=== PATIENT | male | born 1945 | race Caucasian/White ===

== ENCOUNTER → 2016-09-30 | Outpatient (CLI) | payer MEDICARE | END | disposition home or self-care (01) | LOC: PCVCIMAG 10:52 | PROVIDERS: ATTEND Internal Medicine Cardiovascular Disease | DX: E78.00 Pure hypercholesterolemia, unspecified (principal); R94.31 Abnormal electrocardiogram [ECG] [EKG] | CPT/HCPCS: 93325; 93351 ==

== ENCOUNTER → 2017-04-20 | Outpatient (CLI) | payer MEDICARE ==
--- NOTE | 2017-04-20 15:43 | PCVCIMAG ---
APPROVED REPORT Study performed: 04/20/2017 13:43:41 EXAM: Comprehensive 2D, Doppler, and color-flow Echocardiogram Patient Location: Echo lab Status: routine BSA: 2.29 HR: 85 bpmBP: 160/80 mmHg Rhythm: NSR w/ pvcs Other Information Study Quality: Adequate Indications Diabetes Dyspnea CAD mitral regurgitation 2D Dimensions LVEF(%): 57.98 (>50%) IVSd: 11.84 (7-11mm)LVOT Diam: 22.44 (18-24mm) LVDd: 40.45 mm PWd: 11.97 (7-11mm)Ascending Ao: 35.04 (22-36mm) LVDs: 28.25 (25-40mm) Left Atrium: 40.01 (27-40mm) Aortic Root: 36.86 mm LV Single Plane 4CH: 57.28 % LV Single Plane 2CH: 54.42 %Peterson's LVEF: 55.85 % Biplane EF: 55.9 % Volumes Left Atrial Volume (Systole) Single Plane 4CH: 86.95 mLSingle Plane 2CH: 73.01 mL LA ESV Index: 36.00 mL/m2 Aortic Valve AoV Peak Dinh.: 2.41 m/s AO Peak Gr.: 23.25 mmHgLVOT Max P.29 mmHg AO Mean Gr.: 12.49 mmHgLVOT Mean P.93 mmHg AO V2 Mean: 1.70 m/sLVOT Max V: 1.15 m/s AO V2 VTI: 50.64 cmLVOT Mean V: 0.77 m/s SABINE (VTI): 1.92 [id number] V1 VTI: 24.64 cm SABINE Vmax: 1.89 cm2 AI Vmax: 4.80 m/sSV (LVOT): 97.36 mL AI [place]: 3.55 m/s2 AI PHT: 391.75 ms Mitral Valve E/A Ratio: 0.9 MV Decel. Time: 277.06 ms MV E Max Dinh.: 0.82 m/s MV A Dinh.: 0.93 m/s IVRT: 121.11 ms Pulmonary Valve PV Peak Dinh.: 1.23 m/sPV Peak Gr.: 6.04 mmHg Pulmonary Vein P Vein S: 0.36 m/sP Vein A: 0.37 m/s P Vein D: 0.48 m/sP Vein A Dur.: 141.9 msec P Vein S/D Ratio: 0.75 Tricuspid Valve TR Peak Dinh.: 2.60 m/s TR Peak Gr.: 26.95 mmHg Left Ventricle The left ventricle is normal size. There is normal LV segmental wall motion. Mild concentric left ventricular hypertrophy. Left ventricular systolic function is normal. The left ventricular ejection fraction is within the normal range. LVEF is 55-60%. Grade I - abnormal relaxation pattern. Right Ventricle The right ventricle is normal size. The right ventricular systolic function is normal. Atria The left atrium size is normal. The right atrium size is normal. Aortic Valve Mild aortic valve sclerosis. Mild aortic regurgitation. There is no significant aortic valve stenosis. Calculated aortic valve area is 1.9 cm2 with maximum pressure gradient of 23 mmHg and mean pressure gradient of 12 mmHg. Mitral Valve The mitral valve is normal in structure. Mild mitral regurgitation. No evidence of mitral valve stenosis. Tricuspid Valve The tricuspid valve is normal in structure. Mild tricuspid regurgitation with PAP of 37 mmHg. Pulmonic Valve The pulmonary valve is normal in structure. There is no pulmonic valvular regurgitation. Great Vessels The aortic root is normal in size. IVC is normal in size and collapses with >50% inspiration Pericardium There is no pericardial effusion. <Conclusion> The left ventricle is normal size. Mild concentric left ventricular hypertrophy. LVEF is 55-60%. Grade I - abnormal relaxation pattern. The right ventricle is normal size. The left atrium size is normal. Mild aortic valve sclerosis. There is no significant aortic valve stenosis. Calculated aortic valve area is 1.9 cm2 with maximum pressure gradient of 23 mmHg and mean pressure gradient of 12 mmHg. Mild mitral regurgitation. Mild tricuspid regurgitation with PAP of 37 mmHg. There is no pericardial effusion.
== END | disposition home or self-care (01) ==
LOC: PCVCIMAG 14:28
PROVIDERS: ATTEND Internal Medicine Cardiovascular Disease
DX: I08.3 Combined rheumatic disorders of mitral, aortic and tricuspid valves (principal); R93.1 Abnormal findings on diagnostic imaging of heart and coronary circulation; I25.10 Atherosclerotic heart disease of native coronary artery without angina pectoris; E78.00 Pure hypercholesterolemia, unspecified; R94.31 Abnormal electrocardiogram [ECG] [EKG]; E11.9 Type 2 diabetes mellitus without complications; I45.10 Unspecified right bundle-branch block; Z79.899 Other long term (current) drug therapy
CPT/HCPCS: 80061; 93005; 93306; G0463

== ENCOUNTER → 2018-04-26 | Outpatient (CLI) | payer MEDICARE ==
--- NOTE | 2018-04-26 13:19 | PCVCIMAG ---
APPROVED REPORT Laterality: Bilateral Indications Bruit Doppler Spectral Velocity Analysis PSV / EDVPSV / EDV ECA (R) 81 / 11 cm/sECA (L) 52 / 11 cm/s dICA (R) 69 / 27 cm/sdICA (L) 49 / 19 cm/s Misty (R) 40 / 14 cm/smICA (L) 63 / 22 cm/s pICA (R) 48 / 13 cm/spICA (L) 55 / 21 cm/s Bulb (R) 42 / 12 cm/sBulb (L) 66 / 22 cm/s dCCA (R) 59 / 16 cm/sdCCA (L) 71 / 22 cm/s mCCA (R) 95 / 24 cm/smCCA (L) 104 / 29 cm/s Vert (R) 60 / 13 cm/sVert (L) 68 / 21 cm/s ICA/CCA 1.17ICA/CCA 0.89 Findings The right carotid bulb has minimal plaque. The right proximal internal carotid artery shows no significant stenosis. The right common carotid artery shows no significant stenosis. The right external carotid artery shows no significant stenosis. The left carotid bulb has moderate plaque. The left proximal internal carotid artery shows <40% stenosis. The left common carotid artery shows no significant stenosis. The left external carotid artery shows no significant stenosis. Conclusion 1. Right internal carotid artery plaquing without significant stenosis 2. Left internal carotid artery stenosis (<40%) 3. Antegrade vertebral flow
== END | disposition home or self-care (01) ==
LOC: PCVCIMAG 13:00
PROVIDERS: ATTEND Internal Medicine
DX: I65.23 Occlusion and stenosis of bilateral carotid arteries (principal); I45.10 Unspecified right bundle-branch block; R93.1 Abnormal findings on diagnostic imaging of heart and coronary circulation; I34.0 Nonrheumatic mitral (valve) insufficiency; I35.0 Nonrheumatic aortic (valve) stenosis; R09.89 Other specified symptoms and signs involving the circulatory and respiratory systems; E78.00 Pure hypercholesterolemia, unspecified
CPT/HCPCS: 80061; 93005; 93880; G0463

== ENCOUNTER → 2019-04-24 | Outpatient (CLI) | payer MEDICARE | END | disposition home or self-care (01) | LOC: PCVCCLINIC 15:50 | PROVIDERS: ATTEND Internal Medicine Cardiovascular Disease | DX: I25.10 Atherosclerotic heart disease of native coronary artery without angina pectoris (principal); I10 Essential (primary) hypertension; I45.10 Unspecified right bundle-branch block; Q21.2 Atrioventricular septal defect; I34.0 Nonrheumatic mitral (valve) insufficiency; R93.1 Abnormal findings on diagnostic imaging of heart and coronary circulation; M10.9 Gout, unspecified; E78.5 Hyperlipidemia, unspecified; Z88.8 Allergy status to other drugs, medicaments and biological substances; Z79.899 Other long term (current) drug therapy | CPT/HCPCS: 36415; 80061; 93005; G0463 ==